=== PATIENT | female | born 1955 | race Two or more races ===

== ENCOUNTER 2018-02-18 07:25 | Day surgery (SDC) | payer OTHER ==
[~2018-02-18 07:25] MED LIST: CELEBREX200MG PO; SYNTHROID88 MCG PO
== END 2018-02-18 13:50 | disposition home or self-care (01) ==
LOC: AMB-ENDOS 07:25
DX: D12.2 Benign neoplasm of ascending colon (principal); D12.3 Benign neoplasm of transverse colon; K64.2 Third degree hemorrhoids; M35.00 Sjogren syndrome, unspecified

== ENCOUNTER 2019-03-24 06:27 | Day surgery (SDC) | payer OTHER | END 2019-03-24 12:25 | disposition home or self-care (01) | LOC: AMB-ENDOS 06:27 | DX: K57.30 Diverticulosis of large intestine without perforation or abscess without bleeding (principal); K64.2 Third degree hemorrhoids ==